=== PATIENT | female | born 1990 | race Caucasian/White ===

== ENCOUNTER 2018-05-30 12:12 | Emergency (ER) ==
[2018-05-30 12:17] VITALS: BP 116/75; TEMP 98.5; BMI 24.1
--- NOTE | 2018-05-30 12:35 | ED.PDOC ---
General ED Provider: Dr. MICHAEL YOST Chief Complaint: Eye Problem Stated Complaint: Amory eye symptoms. Onset 1 week. Used OTC gtts for pink eye for past week. Seemed better but this morning awakened with severe worsening, severe pain, reddness of eye and lower eye lid plus profuse watering. Think she may have scratched her eye.Pain and edema to infraorbital region. Time Seen by Physician: 12:25 Mode of Arrival: Walk-In Information Source: Patient Exam Limitations: No limitations Primary Care Provider: ALIRIO FAY Nursing and Triage Documentation Reviewed and Agree: Yes Does patient meet sepsis criteria?: No System Inflammatory Response Syndrome: Not Applicable Sepsis Protocol: For patient's 13 years and over: Temp is 96.8 and below OR 101 and greater Pulse >90 BPM Resp >20/minute Acutely Altered Mental Status Are patient's symptoms suggestive of a new infection, such as: -Pneumonia -Skin, Soft Tissue -Endocarditis -UTI -Bone, Joint Infection -Implantable Device -Acute Abdominal Infection -Wound Infection -Meningitis -Blood Stream Catheter Infection -Unknown EENT Complaint Exam - Eye Complaint/Exam Onset/Duration: 1 wk Symptoms Are: Worse Timing: Constant Initial Severity: Moderate Current Severity: Severe Location: Left, Periorbital Character: Reports: Dull, Throbbing Aggravating: Reports: Light Alleviating: Reports: Darkness Associated Signs and Symptoms: Reports: Photophobia, Clear drainage, Purulent drainage, Swelling Related History: Denies: Similar episode Eye Surgical History: Reports: None Penetrating Injury Risk Factors: None Globe Rupture Risk Factors: None Acute Glaucoma Risk Factors: None Optic Artery Occlusion Risk Factors: None Visual Acuity Left Eye: Unable to keep lt eyelid open due to severe pain and swelling Extraocular Movement: Normal Globe Findings: Intact Lid Findings: Erythema Conjunctival Findings: Red Corneal Findings: Clear Fluorescein Uptake: No Fundi: Normal Slit Lamp Used: No Differential Diagnoses: Conjunctivitis, Periorbital Cellulitis Review of Systems - Review Of Systems Constitutional: Reports: No symptoms Eyes: Reports: No symptoms, Blurred vision, Inflammation, Pain, Photophobia Ears, Nose, Mouth, Throat: Reports: No symptoms Respiratory: Reports: No symptoms Cardiac: Reports: No symptoms GI: Reports: No symptoms : Reports: No symptoms Musculoskeletal: Reports: No symptoms Skin: Reports: No symptoms Neurological: Reports: No symptoms Endocrine: Reports: No symptoms Hematologic/Lymphatic: Reports: No symptoms All Other Systems: Reviewed and Negative Past Medical History - Past Medical History Previously Healthy: Yes Endocrine: Reports: None Cardiovascular: Reports: None Respiratory: Reports: None, Other (Strep Throat) Hematological: Reports: None Gastrointestinal: Reports: None Genitourinary: Reports: None Neuro/Psych: Reports: None Musculoskeletal: Reports: None Cancer: Reports: None Last Menstrual Period: 3 days ago - Surgical History General Surgical History: Reports: None, Tonsillectomy (Post Op hemorrhage) - Family History Family History: Reports: None - Social History Smoking Status: Never smoker Hx Substance Use: No Alcohol Screening: None Physical Exam - Physical Exam Appearance: Well-appearing, Well-nourished Ill-appearing: Mild Pain Distress: Severe Eyes: LANCE, EOMI, Conjunctiva inflammed (OS/darkened area below lt globe/tender to touch ) ENT: Ears normal, Nose normal, Oropharynx normal Neck: Supple Respiratory: Airway patent, Breath sounds clear, Breath sounds equal, Respirations nonlabored Cardiovascular: RRR, Pulses normal, No rub, No murmur GI/: Soft, Nontender, No masses, Bowel sounds normal, No Organomegaly Musculoskeletal: Normal strength, ROM intact, No edema, No calf tenderness Skin: Warm, Dry, Normal color Neurological: Sensation intact, Motor intact, Reflexes intact, Cranial nerves intact, Alert, Oriented Psychiatric: Affect appropriate, Mood appropriate Critical Care Note - Critical Care Note Total Time (mins): 60 Course - Course Vital Signs: Temp Pulse Resp BP Pulse Ox 05/30/18 12:13 98.5 F 105 H 20 116/75 98 Departure - Departure Time of Disposition: 15:15 Disposition: HOME SELF-CARE Discharge Problem: Periorbital cellulitis of left eye, Conjunctivitis Instructions: Conjunctivitis (ED), Periorbital Cellulitis in Adults (ED) Condition: Good Pt referred to PMD for follow-up: Yes (3 days) IPMP verified?: No Additional Instructions: Use eye drop solution Maxitrol as directed 4 times daliy for 7 days Take oral meds as directed See [facility] Voicer later this week and or pCP if worsens return to the ER Prescriptions: Amoxicillin 875 mg PO BID #20 tablet Clindamycin HCl 300 mg PO QID #40 capsule Allergies/Adverse Reactions: Allergies No Known Allergies Allergy (Verified 05/30/18 12:17) Home Medications: Ambulatory Orders Amoxicillin 875 mg PO BID #20 tablet 05/30/18 Clindamycin HCl 300 mg PO QID #40 capsule 05/30/18
[2018-05-30] MEDS ORDERED: EYE-STREAM OP STA (12:36)
[2018-05-30] MEDS ORDERED: FLUORETS OP STA (12:36)
[2018-05-30] MEDS ORDERED: TETRACAINE 0.5% OPTH SOL OP STA (12:36)
[2018-05-30] MEDS ORDERED: FUL-GLO OP STA (12:43)
[2018-05-30] MEDS ORDERED: TETRACAINE 0.5% UNIT-DOSE OP STA (12:43)
[2018-05-30] MEDS ORDERED: TOBREX 0.3% OP STA (13:49)
--- NOTE | 2018-05-30 13:57 | CT ---
EXAM: CT of the bilateral internal auditory canals and orbits and posterior fossa with and without c ontrast History: Swollen left eye Technique: Multiplanar CT images through the orbits and internal auditory canals were obtained witho ut the administration of IV contrast Findings: Small to moderate inferior right mastoid effusion. Left mastoid air cells are clear. Mini mal mucosal thickening of the bilateral maxillary sinuses. Minimal mucosal thickening seen within th e sphenoid sinuses and ethmoid air cells. No air-fluid levels seen within the sinuses. Nasal septum is bowed mildly to the right. Bilateral ostiomeatal units are not occluded. No acute fracture or d islocation. There is mild left periorbital edema. No abscess. Impression: 1. Mild left periorbital cellulitis. No evidence for orbital cellulitis. 2. Minimal sinus disease. 3. Small to moderate inferior right mastoid effusion
[2018-05-30] MEDS ORDERED: MAXITROL OPTH SUSP OP STA (13:58)
[2018-05-30] MEDS ORDERED: TORADOL IM STA (14:16)
[2018-05-30] MEDS ORDERED: ZOFRAN ODT PO STA (14:16)
[2018-05-30] MEDS ORDERED: ZOFRAN ODT ONE (14:23)
[2018-05-30] MEDS ORDERED: LIDOCAINE HCL 1% SDV IM STA (14:27)
[2018-05-30] MEDS ORDERED: ROCEPHIN IM STA (14:27)
== END 2018-05-30 15:35 | disposition home or self-care (01) ==
LOC: ED 12:12
DX: L03.213 Periorbital cellulitis (principal); H10.9 Unspecified conjunctivitis
CPT/HCPCS: 87070; 96372; 99283